=== PATIENT | female | born 1935 | race Caucasian/White ===

== ENCOUNTER → 2017-08-05 | Day surgery (SDC) | payer MEDICARE, OTHER ==
[~2017-08-05] MED LIST: ALBUTEROL SULFATE 2.5 MG/3 ML NEBU. NEB PRN; ALPR0.5T PO; ATROPINE 0.5 MG/5 ML DISP.SYRIN. IV PRN; IV RINGERS SOLUTION,LACTATED 1,000 ML IV SCH; LIDOCAINE 2% PF Vial for OR 5 ML VIAL. ONE; MELA3TAB2 PO; NALOXONE 0.4 MG/ML VIAL. IV PRN; ONDANSETRON PF 4 MG/2 ML VIAL. IV PRN; PROPOFOL 20 ML IV ONE; RANI150T6 PO; SUCR1ORA5 PO; diphenhydrAMINE 50 MG/ML VIAL IV PRN
[2017-08-05 10:50] VITALS: BP 119/92
== END | disposition home or self-care (01) ==
LOC: SURG 08:23
PROVIDERS: ATTEND Internal Medicine Gastroenterology
DX: K44.9 Diaphragmatic hernia without obstruction or gangrene (principal); K29.70 Gastritis, unspecified, without bleeding; K31.7 Polyp of stomach and duodenum; K21.9 Gastro-esophageal reflux disease without esophagitis; D64.9 Anemia, unspecified; E55.9 Vitamin D deficiency, unspecified; Z90.49 Acquired absence of other specified parts of digestive tract; Z85.828 Personal history of other malignant neoplasm of skin; Z88.0 Allergy status to penicillin; Z91.048 Other nonmedicinal substance allergy status; Z98.49 Cataract extraction status, unspecified eye; Z80.0 Family history of malignant neoplasm of digestive organs; Z80.3 Family history of malignant neoplasm of breast; Z79.899 Other long term (current) drug therapy; Z90.710 Acquired absence of both cervix and uterus
CPT/HCPCS: 43239; J2704; J7120; J2001

== ENCOUNTER → 2017-11-04 | Day surgery (SDC) | payer MEDICARE, OTHER ==
[~2017-11-04] MED LIST changes: -ALBUTEROL SULFATE 2.5 MG/3 ML NEBU. NEB PRN; +PANT40TA5 PO; +PROPOFOL 10,000 MCG/ML (20ML) VIAL IV ONE; +RANI150T21 PO; -RANI150T6 PO; -diphenhydrAMINE 50 MG/ML VIAL IV PRN
[2017-11-04 13:56] VITALS: BP 142/77
== END | disposition home or self-care (01) ==
LOC: SURG 11:53
PROVIDERS: ATTEND Internal Medicine Gastroenterology
DX: Z12.11 Encounter for screening for malignant neoplasm of colon (principal); K57.30 Diverticulosis of large intestine without perforation or abscess without bleeding; K21.9 Gastro-esophageal reflux disease without esophagitis; D64.9 Anemia, unspecified; E55.9 Vitamin D deficiency, unspecified; E53.9 Vitamin B deficiency, unspecified; Z79.899 Other long term (current) drug therapy; Z90.710 Acquired absence of both cervix and uterus; Z90.49 Acquired absence of other specified parts of digestive tract; Z98.890 Other specified postprocedural states; Z80.3 Family history of malignant neoplasm of breast; Z80.0 Family history of malignant neoplasm of digestive organs; Z88.0 Allergy status to penicillin; Z88.8 Allergy status to other drugs, medicaments and biological substances; Z85.828 Personal history of other malignant neoplasm of skin
CPT/HCPCS: G0121; J2704; J7120; G0105; J2001

== ENCOUNTER 2018-09-12 07:22 | Emergency (ER) | payer MEDICARE, OTHER ==
[~2018-09-12] VITALS: Ht 152.4 cm; Wt 56.7 kg
[~2018-09-12 07:22] MED LIST changes: -ATROPINE 0.5 MG/5 ML DISP.SYRIN. IV PRN; -IV RINGERS SOLUTION,LACTATED 1,000 ML IV SCH; -LIDOCAINE 2% PF Vial for OR 5 ML VIAL. ONE; -NALOXONE 0.4 MG/ML VIAL. IV PRN; -ONDANSETRON PF 4 MG/2 ML VIAL. IV PRN; -PROPOFOL 10,000 MCG/ML (20ML) VIAL IV ONE; -PROPOFOL 20 ML IV ONE
[2018-09-12] MEDS ORDERED: IV NORMAL SALINE 1,000ML 1,000 ML IV SCH (07:52)
--- NOTE | 2018-09-12 07:59 | PHYS DOC ---
Past History Past Medical History: GERD Past Surgical History: Hysterectomy, Other Additional Past Surgical Histo: bowel resection secondary to obstruction Smoking: Non-smoker Alcohol Use: None Drug Use: None Adult General Chief Complaint Chief Complaint: NAUSEA/VOMITING/[facility] HPI Patient is a 82-year-old female presents with epigastric abdominal pain. This is been present, waxing and waning, for years. Worse over the past several days. Her last EGD was approximately 2 years ago. She has been on Carafate for this. No worse with exertion. She started with diarrhea approximately 2 days ago, yellow in nature, no blood in the stool, no black tarry-looking stools. Over the past day she is also developed some nausea and vomiting. No blood in the emesis. No coffee ground emesis. No relief with milk or Maalox for the nausea vomiting or the upper abdominal pain. Nothing seems to make the symptoms better or worse. No worsening with exertion. No radiation of the discomfort. No recent changes in weight. No change in exercise tolerance.[] Review of Systems Review of Systems Constitutional: Denies fever or chills [] Eyes: Denies change in visual acuity, redness, or eye pain [] HENT: Denies nasal congestion or sore throat [] Respiratory: Denies cough or shortness of breath [] Cardiovascular: No additional information not addressed in HPI [] GI: See history of present illness[] : Denies dysuria or hematuria [] Musculoskeletal: Denies back pain or joint pain [] Integument: Denies rash or skin lesions [] Neurologic: Denies headache, focal weakness or sensory changes [] Endocrine: Denies polyuria or polydipsia [] All other systems were reviewed and found to be within normal limits, except as documented in this note. Allergies Allergies Allergies Coded Allergies Type Severity Reaction Last Updated Verified Penicillins Allergy Unknown 11/04/17 Yes omeprazole Allergy Unknown 11/04/17 Yes Physical Exam Physical Exam Constitutional: Well developed, well nourished, no acute distress, non-toxic appearance. [] HENT: Normocephalic, atraumatic, bilateral external ears normal, oropharynx moist, no oral exudates, nose normal. [] Eyes: PERRLA, EOMI, conjunctiva normal, no discharge. [] Neck: Normal range of motion, no tenderness, supple, no stridor. [] Cardiovascular:Heart rate regular rhythm, no murmur [] Lungs & Thorax: Bilateral breath sounds clear to auscultation [] Abdomen: Bowel sounds normal, soft, no tenderness, no masses, no pulsatile masses. [] Skin: Warm, dry, no erythema, no rash. [] Back: No tenderness, no CVA tenderness. [] Extremities: No tenderness, no cyanosis, no clubbing, ROM intact, no edema. [] Neurologic: Alert and oriented X 3, normal motor function, normal sensory function, no focal deficits noted. [] Psychologic: Affect normal, judgement normal, mood normal. [] EKG EKG EKG shows a sinus rhythm at 77 bpm, left axis at -27, normal QTC, no ST elevations. Interpreted by me at 0747. No old EKG available for comparison.[] Radiology/Procedures Radiology/Procedures PROCEDURE: CT ABD PELV W/ORAL&IV CONTRAST CT ABD PELV W/ORAL IV CONTRAST Indication: Abdominal pain. Vomiting. History of bowel resection for obstruction. Exposure: One or more of the following individualized dose reduction techniques were utilized for this examination: 1. Automated exposure control 2. Adjustment of the mA and/or kV according to patient size 3. Use of iterative reconstruction technique. Technique: Intravenous contrast was given. Oral contrast was given. COMPARISON: 09/07/2017. Lung bases are clear. Multiple small hypodense lesions are identified within the liver. Most of these are less than 1 cm and cannot be characterized. A couple of the larger lesions demonstrate cystic density measurements. Appears similar as prior study. Spleen not enlarged. Hypodense lesion in the pancreatic head appears similar as the prior examination. No evidence of adrenal mass. The kidneys demonstrate symmetric enhancement. There are multiple hypodense lesions of both kidneys. Largest is in the lower pole the right kidney with a mildly calcified septation. These appear similar as the prior study. No significant hydronephrosis. The gallbladder demonstrates no calcified stone. Aorta is calcified and tortuous. No evidence of an aneurysm. No significant lymph node enlargement. There is gastric wall thickening, may just be due to incomplete distention. No significant small bowel distention. There is mild stool within the colon. No evidence of acute colitis. There is no evidence of ascites. No significant pneumoperitoneum. Urinary bladder is distended, measuring 11.5 cm. Degenerative changes of the lumbar spine are seen and are severe. Note that sagittal reconstructions from the prior study are not available, and therefore the spine is compared with images from September 01, 2016. Findings appear similar from that time. Anterolisthesis of L5 on S1 is again demonstrated. IMPRESSION: 1. Urinary bladder distention. 2. Multiple hypodense lesions of the liver, kidneys and pancreas, appears similar as prior study.[] Course & Med Decision Making Course & Med Decision Making Pertinent Labs and Imaging studies reviewed. (See chart for details) ED course: Patient arrived, was placed in bed, and tolerated exam well. She was able to tolerate oral contrast after administration of medicine for nausea and vomiting. She also reported feeling much better after the antiemetic and antispasmodic medicine. She was transported to and from radiology with any complications. After return of the imaging and laboratory findings, these were discussed with the patient and family who voiced understanding. All questions were answered. She was discharged in improved condition. Decision-making: There is no evidence of this being an acute coronary syndrome, no evidence of congestive heart failure, no evidence of significant electrolyte abnormality, no urinary tract infection or pyelonephritis. No pancreatitis, no obstruction, no perforation, no acute intra-abdominal surgical pathology is present.[] Dragon Disclaimer Dragon Disclaimer This electronic medical record was generated, in whole or in part, using a voice recognition dictation system. Departure Departure: Impression: Primary Impression: Nausea, vomiting, and diarrhea Additional Impression: Epigastric pain Disposition: 01 HOME, SELF-CARE Condition: IMPROVED Referrals: DONAVAN ARCE (PCP) Follow-up in 2 days Patient Instructions: Diet for Diarrhea, Adult, Nausea and Vomiting Additional Instructions: Drink plenty of fluids, frequent small sips. No fatty foods, no milk, and no pepper for the next 48 hours. For the next 48 hours eat a diet rich in carbohydrates with foods such as bananas, rice, applesauce, and toast. Follow-up with your regular doctor in 2 days. Return to the ER if unable tolerate liquids, blood in the stool or emesis, or any other concerns. Scripts Ondansetron Hcl (ZOFRAN) 4 Mg Tablet 1 TAB PO Q6HRS for nausea or vomiting, #20 TAB Prov: ERWIN BLACKMON DO 09/12/18 Hyoscyamine Sulfate (LEVSIN) 0.125 Mg Tablet 0.125 MG PO QID for abdominal pain/cramping, #30 TAB Prov: ERWIN BLACKMON DO 09/12/18 Problem Qualifiers ERWIN BLACKMON DO Sep 12, 2018 07:59
[2018-09-12] MEDS ORDERED: IOHEXOL 240 MG/ML 50ML VIAL. ONE (08:02)
[2018-09-12] MEDS ORDERED: HYOSCYAMINE 0.125 MG TAB.RAPDIS PO ONE (08:15)
[2018-09-12] MEDS ORDERED: ONDANSETRON PF 4 MG/2 ML VIAL. IV ONE (08:15)
[2018-09-12 08:19] LABS: BASO % 0 % (0-3); EOS % 0 % (0-3); HEMATOCRIT 38.5 % (36.0-47.0); HEMOGLOBIN 12.9 g/dL (12.0-15.5); LYMPH # 1.3 x10^3/uL (1.0-4.8); LYMPH % 23 % (24-48); MEAN CORPUSCULAR HEMOGLOBIN 30 pg (25-35); MEAN CORPUSCULAR HGB CONC 34 g/dL (31-37); MEAN CORPUSCULAR VOLUME 88 fL (79-100); MONO # 0.2 x10^3/uL (0.0-1.1); MONO % 4 % (0-9); NEUT # 4.1 x10^3uL (1.8-7.7); NEUT % 72 % (31-73); PLATELET COUNT 200 x10^3/uL (140-400); RED BLOOD COUNT 4.37 x10^6/uL (3.50-5.40); RED CELL DISTRIBUTION WIDTH 13.9 % (11.5-14.5); WHITE BLOOD COUNT 5.7 x10^3/uL (4.0-11.0)
[2018-09-12 08:44] LABS: ALBUMIN 3.5 g/dL (3.4-5.0); ALBUMIN/GLOBULIN RATIO 1.1 (1.0-1.7); CALCIUM 9.1 mg/dL (8.5-10.1); CREATININE 0.6 mg/dL (0.6-1.0); GFR 95.7; POTASSIUM 3.7 mmol/L (3.5-5.1); TOTAL BILIRUBIN 0.3 mg/dL (0.2-1.0); TOTAL PROTEIN 6.8 g/dL (6.4-8.2)
[2018-09-12] MEDS ORDERED: IOHEXOL 300 MG/ML 75 ML VIAL. IV ONE (09:00)
[2018-09-12 09:27] LABS: AMORPHOUS SEDIMENT,UR PRESENT /HPF; BACTERIA,URINE 0 /HPF (0-FEW); BILIRUBIN,URINE NEG (NEG); CLARITY,URINE HAZY; COLOR,URINE STRAW; GLUCOSE,URINE NEG (NEG); NITRITE,URINE NEG (NEG); RBC,URINE RARE /HPF (0-2); SQUAMOUS EPITHELIAL CELL,UR OCC /LPF; UROBILINOGEN,URINE 0.2 mg/dL (0.2 mg/dL); WBC,URINE 0 /HPF (0-4)
--- NOTE | 2018-09-12 10:02 | RAD ---
CT ABD PELV W/ORAL IV CONTRAST Indication: Abdominal pain. Vomiting. History of bowel resection for obstruction. Exposure: One or more of the following individualized dose reduction techniques were utilized for this examination: 1. Automated exposure control 2. Adjustment of the mA and/or kV according to patient size 3. Use of iterative reconstruction technique. Technique: Intravenous contrast was given. Oral contrast was given. COMPARISON: 09/07/2017. Lung bases are clear. Multiple small hypodense lesions are identified within the liver. Most of these are less than 1 cm and cannot be characterized. A couple of the larger lesions demonstrate cystic density measurements. Appears similar as prior study. Spleen not enlarged. Hypodense lesion in the pancreatic head appears similar as the prior examination. No evidence of adrenal mass. The kidneys demonstrate symmetric enhancement. There are multiple hypodense lesions of both kidneys. Largest is in the lower pole the right kidney with a mildly calcified septation. These appear similar as the prior study. No significant hydronephrosis. The gallbladder demonstrates no calcified stone. Aorta is calcified and tortuous. No evidence of an aneurysm. No significant lymph node enlargement. There is gastric wall thickening, may just be due to incomplete distention. No significant small bowel distention. There is mild stool within the colon. No evidence of acute colitis. There is no evidence of ascites. No significant pneumoperitoneum. Urinary bladder is distended, measuring 11.5 cm. Degenerative changes of the lumbar spine are seen and are severe. Note that sagittal reconstructions from the prior study are not available, and therefore the spine is compared with images from September 01, 2016. Findings appear similar from that time. Anterolisthesis of L5 on S1 is again demonstrated. IMPRESSION: 1. Urinary bladder distention. 2. Multiple hypodense lesions of the liver, kidneys and pancreas, appears similar as prior study. Electronically signed by: Sergio Babin MD (09/12/2018 9:59 AM) [id number]
[2018-09-12] MEDS ORDERED: ONDA4TAB7 PO (10:17)
[2018-09-12] MEDS ORDERED: HYOS0.1264 PO (10:17)
[2018-09-12 10:25] VITALS: BP 153/78
--- NOTE | 2018-09-12 11:16 | EKG ---
[address] [address] Test Date: 2018-09-12 Test Time: 07:47:33 Pat Name: LIYA BACH Department: Room: Gender: F Terminal Gauger: ASHKAN : 1935 Requested By: ERWIN BLACKMON Order Number: [id number] Reading MD: Measurements Intervals [place] Rate: 77 P: 35 MT: 136 QRS: -27 QRSD: 72 T: 0 QT: 368 QTc: 418 Interpretive Statements SINUS RHYTHM LEFTWARD AXIS OTHERWISE NORMAL ECG RI6.01 No previous ECG available for comparison
== END 2018-09-12 10:25 | disposition home or self-care (01) ==
LOC: ER 07:22
DX: R11.2 Nausea with vomiting, unspecified (principal); R10.13 Epigastric pain; K21.9 Gastro-esophageal reflux disease without esophagitis; N32.89 Other specified disorders of bladder; Z90.710 Acquired absence of both cervix and uterus; Z88.0 Allergy status to penicillin; Z88.8 Allergy status to other drugs, medicaments and biological substances
CPT/HCPCS: 36415; 74177; 80053; 81001; 83690; 83880; 84484; 85025; 85610; 93005; 96361; 96374; 99285; J2405; Q9967; J7030

== ENCOUNTER → 2018-11-18 | Outpatient (CLI) | payer MEDICARE, OTHER ==
[~2018-11-18] MED LIST changes: +HYOS0.1264 PO; +ONDA4TAB7 PO; +RANI-376 PO; -RANI150T21 PO
--- NOTE | 2018-11-22 10:02 | RAD ---
DATE: 11/18/2018 2:01 PM EXAM: MAMMO MARSHALL SCREENING BILATERAL HISTORY: routine screening evaluation. COMPARISON: None Bilateral CC and MLO views of the breasts were performed. Bilateral breast tomosynthesis was performed in CC and MLO projections. This study was interpreted with the benefit of Computerized Aided Detection (CAD). FINDINGS: Breast Density: SCATTERED The breast parenchyma shows scattered fibroglandular densities. Breast parenchyma level B Well-circumscribed nodular densities are seen in the superior right breast. No suspicious right breast microcalcification or architectural distortion. No suspicious masses, microcalcifications or architectural distortion is present to suggest malignancy in the left breast. The visualized axillae are unremarkable. IMPRESSION: Right breast mass, findings for which additional imaging is advised. BI-RADS CATEGORY: 0 INCOMPLETE: NEEDS ADDITIONAL IMAGING EVALUATION AND/OR PRIOR MAMMOGRAMS FOR COMPARISON. RECOMMENDED FOLLOW-UP: ADD ADDITIONAL IMAGING spot compression images of the right breast as well as ultrasound is recommended. PQRS compliance statement: Patient information was entered into a reminder system with a target due date for the next mammogram. Mammography is a sensitive method for finding small breast cancers, but it does not detect them all and is not a substitute for careful clinical examination. A negative mammogram does not negate a clinically suspicious finding and should not result in delay in biopsying a clinically suspicious abnormality. "Our facility is accredited by the [employer] Mammography Program."
== END | disposition home or self-care (01) ==
LOC: MAMMO 13:33
PROVIDERS: ATTEND Physician Assistant Medical
DX: Z12.31 Encounter for screening mammogram for malignant neoplasm of breast (principal); N63.10 Unspecified lump in the right breast, unspecified quadrant
CPT/HCPCS: 77063; 77067